=== PATIENT | male | born 1960 | race Caucasian/White ===

== ENCOUNTER 2018-03-08 11:35 | Day surgery (SDC) | payer BC ==
[2018-03-08] MEDS ORDERED: LIDOCAINE 2% (SDV) 5 ML INJ (13:16)
[2018-03-08] MEDS ORDERED: PROPOFOL 40 ML (13:16)
[2018-03-08] MEDS ORDERED: FENTAnyl 50 MCG/ML VIAL (13:16)
== END 2018-03-08 17:03 | disposition home or self-care (01) ==
LOC: GIL 11:35
DX: K25.9 Gastric ulcer, unspecified as acute or chronic, without hemorrhage or perforation (principal); K29.70 Gastritis, unspecified, without bleeding; K44.9 Diaphragmatic hernia without obstruction or gangrene; K21.9 Gastro-esophageal reflux disease without esophagitis; I10 Essential (primary) hypertension; K57.90 Diverticulosis of intestine, part unspecified, without perforation or abscess without bleeding; K64.8 Other hemorrhoids
CPT/HCPCS: 43239